=== PATIENT | male | born 1950 | race African-American/Black ===

== ENCOUNTER 2017-11-27 10:25 | Inpatient (IN) | payer MEDICARE, OTHER ==
[2017-11-27 11:03] LABS: ADD MAN DIFF? NO
[2017-11-27 11:05] LABS: ABNORMAL IP MESSAGE 1; BASOPHIL # 0.1 10^3/ul (0.0-0.1); BASOPHILS % 0.7 % (0.0-2.0); EOSINOPHILS # 0.2 10^3/ul (0.0-0.5); HEMATOCRIT 43.2 % (42.0-52.0); HEMOGLOBIN 14.2 g/dl (14.0-18.0); LYMPHOCYTES # 6.9 10^3/ul (0.8-2.9); LYMPHOCYTES % 44.1 % (15.0-51.0); MEAN CORPUSCULAR HEMOGLOBIN 31.8 pg (29.0-33.0); MEAN CORPUSCULAR HGB CONC 32.9 g/dl (32.0-37.0); MEAN CORPUSCULAR VOLUME 96.9 fl (82.0-101.0); MONOCYTE # 1.4 10^3/ul (0.3-0.9); MONOCYTES % 8.9 % (0.0-11.0); NEUTROPHIL # 6.7 10^3/ul (1.6-7.5); PLATELET COUNT 293 10^3/UL (140-415); POSITIVE DIFF @See below; RED BLOOD COUNT 4.46 10^6/ul (4.70-6.10); RED CELL DISTRIBUTION WIDTH 12.2 % (11.5-14.5)
[2017-11-27 11:05] LABS: WHITE BLOOD COUNT 15.6 10^3/ul (4.8-10.8)
[2017-11-27 11:21] LABS: ALANINE AMINOTRANSFERASE 15 IU/L (13-69); ALBUMIN 4.3 g/dl (3.3-4.9); ALKALINE PHOSPHATASE 89 IU/L (42-121); ANION GAP 17 (8-16); ASPARTATE AMINO TRANSFERASE 41 IU/L (15-46); BILIRUBIN,INDIRECT 0.3 mg/dl (0-1.1); BILIRUBIN,TOTAL 0.3 mg/dl (0.2-1.3); BLOOD UREA NITROGEN 17 mg/dl (7-20); CALCIUM 9.1 mg/dl (8.4-10.2); CARBON DIOXIDE 22 mmol/L (21-31); CHLORIDE 102 mmol/L (97-110); CREATININE 0.73 mg/dl (0.61-1.24); GLUCOSE 325 mg/dl (70-220); LIPASE 124 U/L (23-300); POTASSIUM 4.5 mmol/L (3.5-5.1); SODIUM 136 mmol/L (135-144); TOTAL PROTEIN 8.2 g/dl (6.1-8.1)
[2017-11-27 11:24] LABS: INR 0.91; PROTIME 12.3 Sec (11.9-14.9)
[2017-11-27 11:33] LABS: TROPONIN-I 0.018 ng/ml (0.000-0.120)
[2017-11-27] MEDS: PROPOFOL 100 ML IV (11:54)
[2017-11-27] MEDS: SOD CHLORIDE 0.9% 1,000 ML IV ×2 (11:55→18:35)
[2017-11-27] MEDS: niCARdipine-NS 0.1MG/ML DRIP 200 ML IV (11:57)
[2017-11-27 13:36] LABS: Allen Test ACCEPTAB; Arterial Blood Gas Oxygen Sat 94.7 mmHG (95.0-98.0); Arterial COHb 0.5 % (0.0-3.0); Arterial HCO3 19.1 mmol/L (22.0-26.0); Arterial MetHb 0.2 % (0.0-1.5); Arterial Total Hemglobin 14.5 g/dl (12.0-18.0); Arterial pCO2 40.5 mmhg (35-45); MODE VENT - AC; Site Right Radial
[2017-11-27] MEDS ORDERED: NACL 0.9% 3 ML SYG IV (14:00)
[2017-11-27] MEDS ORDERED: ONDANSETRON 4 MG INJ IV (14:00)
[2017-11-27] MEDS ORDERED: GLUCOSE GEL 15 GRAM TUBE PO ×2 (15:00)
[2017-11-27] MEDS ORDERED: DEXTROSE 50% 50 ML SYRINGE IV ×2 (15:00)
[2017-11-27] MEDS ORDERED: GLUCOSE GEL 15 GRAM TUBE BUCCAL (15:00)
[2017-11-27] MEDS ORDERED: morphine 2 MG INJ IV (15:00)
[2017-11-27] MEDS ORDERED: GLUCAGON 1 MG INJ IM (15:00)
[2017-11-27] MEDS ORDERED: LEVETIRACETAM 1000 MG (PMX) 100 ML IVPB (15:00)
[2017-11-27] MEDS ORDERED: LORAZEPAM 2 MG INJ IV (15:00)
[2017-11-27] MEDS ORDERED: INSULIN ASPART [NOVOLOG] 3 ML PEN SC (17:00)
[2017-11-27] MEDS: PANTOPRAZOLE 40 MG INJ IV (18:34)
[2017-11-27] MEDS: Insulin NOVOLOG SS MILD Algorithm (NPO/TPN/ENTERAL FEEDS) SC ×2 (18:35→22:11)
[2017-11-27 21:17] LABS: HEMATOCRIT 43.4 % (42.0-52.0); HEMOGLOBIN 14.1 g/dl (14.0-18.0)
[2017-11-27 23:23] LABS: AADO2 Arterial 621.7 mmHg (7.0-24.0); Allen Test ACCEPTAB; Arterial Base Excess -2.6 mmol/L (-3.0-3); Arterial Blood Gas Oxygen Sat 85.8 mmHG (95.0-98.0); Arterial COHb 0.7 % (0.0-3.0); Arterial Fraction of Oxyhgb 85.1 % (93.0-99.0); Arterial HCO3 22.5 mmol/L (22.0-26.0); Arterial MetHb 0.1 % (0.0-1.5); Arterial Total Hemglobin 14.9 g/dl (12.0-18.0); Arterial pCO2 40.1 mmhg (35-45); MODE VENT - AC; Site Right Radial
[2017-11-28] MEDS: niCARdipine-NS 0.1MG/ML DRIP 200 ML IV (00:31)
[2017-11-28] MEDS: ACCU-CHEK XX (02:15)
[2017-11-28] MEDS: Insulin NOVOLOG SS MILD Algorithm (NPO/TPN/ENTERAL FEEDS) SC ×6 (02:56→22:00)
[2017-11-28] MEDS: ACETAMINOPHEN 650MG/20.3ML CUP GTB ×2 (05:00→22:59)
[2017-11-28] MEDS: PANTOPRAZOLE 40 MG INJ IV (05:20)
[2017-11-28 05:23] LABS: ADD MAN DIFF? NO
[2017-11-28 05:27] LABS: ABNORMAL IP MESSAGE 1; BASOPHILS % 0.1 % (0.0-2.0); HEMATOCRIT 43.2 % (42.0-52.0); HEMOGLOBIN 14.1 g/dl (14.0-18.0); LYMPHOCYTES # 1.2 10^3/ul (0.8-2.9); LYMPHOCYTES % 4.5 % (15.0-51.0); MEAN CORPUSCULAR HEMOGLOBIN 31.9 pg (29.0-33.0); MEAN CORPUSCULAR HGB CONC 32.6 g/dl (32.0-37.0); MEAN CORPUSCULAR VOLUME 97.7 fl (82.0-101.0); MEAN PLATELET VOLUME 9.9 fl (7.4-10.4); MONOCYTE # 2.4 10^3/ul (0.3-0.9); MONOCYTES % 8.9 % (0.0-11.0); NEUTROPHILS % 85.2 % (39.0-77.0); PLATELET COUNT 224 10^3/UL (140-415); POSITIVE DIFF @See below; RED BLOOD COUNT 4.42 10^6/ul (4.70-6.10); RED CELL DISTRIBUTION WIDTH 12.7 % (11.5-14.5)
[2017-11-28 05:35] LABS: HEMOGLOBIN A1C 9.8 % (0-5.9)
[2017-11-28 05:55] LABS: ALANINE AMINOTRANSFERASE 31 IU/L (13-69); ALBUMIN 3.8 g/dl (3.3-4.9); ALBUMIN/GLOBULIN RATIO 1.08; ALKALINE PHOSPHATASE 87 IU/L (42-121); ANION GAP 15 (8-16); ASPARTATE AMINO TRANSFERASE 19 IU/L (15-46); BILIRUBIN,INDIRECT 0.5 mg/dl (0-1.1); BILIRUBIN,TOTAL 0.5 mg/dl (0.2-1.3); BLOOD UREA NITROGEN 12 mg/dl (7-20); CALCIUM 9.2 mg/dl (8.4-10.2); CARBON DIOXIDE 26 mmol/L (21-31); CHLORIDE 106 mmol/L (97-110); CREATININE 0.73 mg/dl (0.61-1.24); GLUCOSE 276 mg/dl (70-220); MAGNESIUM 1.7 mg/dl (1.7-2.5); POTASSIUM 4.6 mmol/L (3.5-5.1); SODIUM 142 mmol/L (135-144); TOTAL PROTEIN 7.3 g/dl (6.1-8.1)
[2017-11-28 06:23] LABS: THYROID STIMULATING HORMONE 0.082 MIU/L (0.465-4.680)
[2017-11-28] MEDS ORDERED: PIPER-TAZO 3.375 GM IV (PMX) 100 ML IVPB (12:00)
[2017-11-28] MEDS: SOD CHLORIDE 0.9% 1,000 ML IV (12:11)
[2017-11-28] MEDS: CEFEPIME 1GM/50 ML (PMX) 50 ML IVPB ×2 (12:11→20:05)
[2017-11-28] MEDS: INSULIN GLARGINE [LANTus] (100 UNITS/ML) SYG SC (12:19)
[2017-11-28] MEDS: niCARdipine 25 MG in SOD CHLORIDE 0.9% 250 ML IV ×2 (13:17→18:39)
[2017-11-28] MEDS: metroNIDAZOLE 500 MG/NS (PMX) 100 ML IVPB ×2 (13:19→21:40)
[2017-11-28] MEDS: PROPOFOL 100 ML IV ×2 (17:00→22:42)
[2017-11-29] MEDS: Insulin NOVOLOG SS MILD Algorithm (NPO/TPN/ENTERAL FEEDS) SC ×4 (01:00→11:57)
[2017-11-29] MEDS: ACCU-CHEK XX (02:47)
[2017-11-29] MEDS: PROPOFOL 100 ML IV (02:47)
[2017-11-29] MEDS: metroNIDAZOLE 500 MG/NS (PMX) 100 ML IVPB ×3 (05:43→22:00)
[2017-11-29] MEDS: PANTOPRAZOLE 40 MG INJ IV (05:43)
[2017-11-29 06:25] LABS: ADD MAN DIFF? NO
[2017-11-29 06:59] LABS: ABNORMAL IP MESSAGE 1; BASOPHIL # 0.1 10^3/ul (0.0-0.1); BASOPHILS % 0.3 % (0.0-2.0); HEMATOCRIT 42.2 % (42.0-52.0); HEMOGLOBIN 13.5 g/dl (14.0-18.0); LYMPHOCYTES # 1.6 10^3/ul (0.8-2.9); LYMPHOCYTES % 7.3 % (15.0-51.0); MEAN CORPUSCULAR HEMOGLOBIN 32.5 pg (29.0-33.0); MEAN CORPUSCULAR VOLUME 101.7 fl (82.0-101.0); MEAN PLATELET VOLUME 10.1 fl (7.4-10.4); MONOCYTE # 2.2 10^3/ul (0.3-0.9); MONOCYTES % 9.7 % (0.0-11.0); NEUTROPHIL # 18.3 10^3/ul (1.6-7.5); NEUTROPHILS % 81.7 % (39.0-77.0); PLATELET COUNT 176 10^3/UL (140-415); POSITIVE DIFF @See below; RED BLOOD COUNT 4.15 10^6/ul (4.70-6.10); RED CELL DISTRIBUTION WIDTH 12.9 % (11.5-14.5)
[2017-11-29 06:59] LABS: WHITE BLOOD COUNT 22.4 10^3/ul (4.8-10.8)
[2017-11-29] MEDS: SOD CHLORIDE 0.9% 1,000 ML IV ×2 (07:00→11:02)
[2017-11-29 07:32] LABS: ANION GAP 17 (8-16); BLOOD UREA NITROGEN 13 mg/dl (7-20); CALCIUM 9.2 mg/dl (8.4-10.2); CARBON DIOXIDE 24 mmol/L (21-31); CHLORIDE 109 mmol/L (97-110); CREATININE 0.74 mg/dl (0.61-1.24); GLUCOSE 247 mg/dl (70-220); MAGNESIUM 2.2 mg/dl (1.7-2.5); PHOSPHORUS 1.7 mg/dl (2.5-4.9); POTASSIUM 4.5 mmol/L (3.5-5.1); SODIUM 145 mmol/L (135-144)
[2017-11-29 08:45] LABS: AADO2 Arterial 338.2 mmHg (7.0-24.0); Allen Test ACCEPTAB; Arterial Base Excess -1.3 mmol/L (-3.0-3); Arterial Blood Gas Oxygen Sat 99.5 mmHG (95.0-98.0); Arterial COHb 0.6 % (0.0-3.0); Arterial Fraction of Oxyhgb 98.6 % (93.0-99.0); Arterial HCO3 24.1 mmol/L (22.0-26.0); Arterial MetHb 0.3 % (0.0-1.5); Arterial Total Hemglobin 14.4 g/dl (12.0-18.0); Arterial pCO2 42.8 mmhg (35-45); MODE VENT - AC; Site Left Radial
[2017-11-29] MEDS: INSULIN GLARGINE [LANTus] (100 UNITS/ML) SYG SC ×2 (08:59→11:57)
[2017-11-29] MEDS: CEFEPIME 1GM/50 ML (PMX) 50 ML IVPB ×2 (09:53→20:46)
[2017-11-29] MEDS: niCARdipine 25 MG in SOD CHLORIDE 0.9% 250 ML IV ×2 (09:53→15:41)
[2017-11-29] MEDS: INSULIN ASPART [NOVOLOG] 3 ML PEN SC ×2 (18:09→23:32)
[2017-11-29] MEDS ORDERED: niCARdipine-NS 0.1MG/ML DRIP 200 ML (20:43)
[2017-11-30] MEDS: niCARdipine 25 MG in SOD CHLORIDE 0.9% 250 ML IV ×5 (00:45→21:05)
[2017-11-30] MEDS: INSULIN ASPART [NOVOLOG] 3 ML PEN SC ×6 (04:59→21:23)
[2017-11-30 05:08] LABS: ADD MAN DIFF? NO
[2017-11-30 05:15] LABS: WHITE BLOOD COUNT 21.8 10^3/ul (4.8-10.8)
[2017-11-30 05:15] LABS: ABNORMAL IP MESSAGE 1; BASOPHIL # 0.1 10^3/ul (0.0-0.1); BASOPHILS % 0.4 % (0.0-2.0); HEMATOCRIT 39.8 % (42.0-52.0); HEMOGLOBIN 12.6 g/dl (14.0-18.0); LYMPHOCYTES % 9.3 % (15.0-51.0); MEAN CORPUSCULAR HEMOGLOBIN 31.7 pg (29.0-33.0); MEAN CORPUSCULAR HGB CONC 31.7 g/dl (32.0-37.0); MEAN PLATELET VOLUME 10.2 fl (7.4-10.4); MONOCYTE # 2.5 10^3/ul (0.3-0.9); MONOCYTES % 11.6 % (0.0-11.0); NEUTROPHIL # 16.9 10^3/ul (1.6-7.5); NEUTROPHILS % 77.6 % (39.0-77.0); PLATELET COUNT 169 10^3/UL (140-415); POSITIVE DIFF @See below; RED BLOOD COUNT 3.98 10^6/ul (4.70-6.10); RED CELL DISTRIBUTION WIDTH 13.2 % (11.5-14.5)
[2017-11-30] MEDS: PANTOPRAZOLE 40 MG INJ IV (05:18)
[2017-11-30] MEDS: metroNIDAZOLE 500 MG/NS (PMX) 100 ML IVPB ×3 (05:18→21:57)
[2017-11-30 05:53] LABS: ANION GAP 17 (8-16); BLOOD UREA NITROGEN 18 mg/dl (7-20); CALCIUM 9.2 mg/dl (8.4-10.2); CARBON DIOXIDE 27 mmol/L (21-31); CHLORIDE 108 mmol/L (97-110); CREATININE 0.75 mg/dl (0.61-1.24); GLUCOSE 277 mg/dl (70-220); MAGNESIUM 2.3 mg/dl (1.7-2.5); POTASSIUM 4.6 mmol/L (3.5-5.1); SODIUM 147 mmol/L (135-144)
[2017-11-30] MEDS: INSULIN GLARGINE [LANTus] (100 UNITS/ML) SYG SC ×2 (08:00→11:18)
[2017-11-30] MEDS: ACETAMINOPHEN 650MG/20.3ML CUP GTB ×2 (09:55→21:22)
[2017-11-30] MEDS: CEFEPIME 1GM/50 ML (PMX) 50 ML IVPB ×2 (09:55→20:57)
[2017-12-01] MEDS: INSULIN ASPART [NOVOLOG] 3 ML PEN SC ×6 (01:24→21:13)
[2017-12-01] MEDS: niCARdipine 25 MG in SOD CHLORIDE 0.9% 250 ML IV (03:08)
[2017-12-01 05:45] LABS: ADD MAN DIFF? NO
[2017-12-01 05:59] LABS: ABNORMAL IP MESSAGE 1; BASOPHIL # 0.1 10^3/ul (0.0-0.1); BASOPHILS % 0.4 % (0.0-2.0); EOSINOPHILS % 0.2 % (0.0-7.0); HEMATOCRIT 37.1 % (42.0-52.0); HEMOGLOBIN 11.7 g/dl (14.0-18.0); LYMPHOCYTES # 1.7 10^3/ul (0.8-2.9); LYMPHOCYTES % 12.2 % (15.0-51.0); MEAN CORPUSCULAR HEMOGLOBIN 31.4 pg (29.0-33.0); MEAN CORPUSCULAR HGB CONC 31.5 g/dl (32.0-37.0); MEAN CORPUSCULAR VOLUME 99.5 fl (82.0-101.0); MEAN PLATELET VOLUME 10.3 fl (7.4-10.4); MONOCYTE # 1.7 10^3/ul (0.3-0.9); MONOCYTES % 11.7 % (0.0-11.0); NEUTROPHIL # 10.6 10^3/ul (1.6-7.5); NEUTROPHILS % 74.1 % (39.0-77.0); PLATELET COUNT 151 10^3/UL (140-415); POSITIVE DIFF @See below; RED BLOOD COUNT 3.73 10^6/ul (4.70-6.10); RED CELL DISTRIBUTION WIDTH 13.2 % (11.5-14.5)
[2017-12-01 05:59] LABS: WHITE BLOOD COUNT 14.2 10^3/ul (4.8-10.8)
[2017-12-01] MEDS: metroNIDAZOLE 500 MG/NS (PMX) 100 ML IVPB ×3 (06:12→22:10)
[2017-12-01] MEDS: PANTOPRAZOLE 40 MG INJ IV (06:12)
[2017-12-01] MEDS: ACETAMINOPHEN 650MG/20.3ML CUP GTB (06:13)
[2017-12-01 06:19] LABS: ANION GAP 14 (8-16); BLOOD UREA NITROGEN 23 mg/dl (7-20); CALCIUM 9.3 mg/dl (8.4-10.2); CARBON DIOXIDE 27 mmol/L (21-31); CHLORIDE 111 mmol/L (97-110); CREATININE 0.66 mg/dl (0.61-1.24); GLUCOSE 287 mg/dl (70-220); MAGNESIUM 2.2 mg/dl (1.7-2.5); POTASSIUM 4.3 mmol/L (3.5-5.1); SODIUM 148 mmol/L (135-144)
[2017-12-01] MEDS: CEFEPIME 1GM/50 ML (PMX) 50 ML IVPB ×2 (09:14→21:06)
[2017-12-01] MEDS: INSULIN GLARGINE [LANTus] (100 UNITS/ML) SYG SC (09:51)
[2017-12-02] MEDS: INSULIN ASPART [NOVOLOG] 3 ML PEN SC ×6 (01:30→21:20)
[2017-12-02 05:16] LABS: ADD MAN DIFF? NO
[2017-12-02 05:24] LABS: ABNORMAL IP MESSAGE 1; BASOPHIL # 0.1 10^3/ul (0.0-0.1); BASOPHILS % 0.4 % (0.0-2.0); EOSINOPHILS # 0.1 10^3/ul (0.0-0.5); EOSINOPHILS % 0.9 % (0.0-7.0); HEMATOCRIT 36.7 % (42.0-52.0); HEMOGLOBIN 11.8 g/dl (14.0-18.0); LYMPHOCYTES # 2.4 10^3/ul (0.8-2.9); LYMPHOCYTES % 17.6 % (15.0-51.0); MEAN CORPUSCULAR HEMOGLOBIN 31.9 pg (29.0-33.0); MEAN CORPUSCULAR HGB CONC 32.2 g/dl (32.0-37.0); MEAN CORPUSCULAR VOLUME 99.2 fl (82.0-101.0); MEAN PLATELET VOLUME 10.3 fl (7.4-10.4); MONOCYTE # 1.6 10^3/ul (0.3-0.9); MONOCYTES % 11.8 % (0.0-11.0); NEUTROPHILS % 66.8 % (39.0-77.0); PLATELET COUNT 137 10^3/UL (140-415); POSITIVE DIFF @See below; RED CELL DISTRIBUTION WIDTH 13.2 % (11.5-14.5)
[2017-12-02 05:24] LABS: WHITE BLOOD COUNT 13.5 10^3/ul (4.8-10.8)
[2017-12-02] MEDS: metroNIDAZOLE 500 MG/NS (PMX) 100 ML IVPB ×3 (05:29→21:25)
[2017-12-02] MEDS: PANTOPRAZOLE 40 MG INJ IV (05:29)
[2017-12-02 06:10] LABS: ANION GAP 10 (8-16); BLOOD UREA NITROGEN 23 mg/dl (7-20); CARBON DIOXIDE 27 mmol/L (21-31); CHLORIDE 114 mmol/L (97-110); CREATININE 0.68 mg/dl (0.61-1.24); GLUCOSE 257 mg/dl (70-220); MAGNESIUM 2.2 mg/dl (1.7-2.5); PHOSPHORUS 2.6 mg/dl (2.5-4.9); POTASSIUM 3.9 mmol/L (3.5-5.1); SODIUM 147 mmol/L (135-144)
[2017-12-02 08:52] LABS: AADO2 Arterial 100.9 mmHg (7.0-24.0); Allen Test ACCEPTAB; Arterial Base Excess 2.5 mmol/L (-3.0-3); Arterial Blood Gas Oxygen Sat 95.5 mmHG (95.0-98.0); Arterial COHb 0.7 % (0.0-3.0); Arterial Fraction of Oxyhgb 94.5 % (93.0-99.0); Arterial HCO3 25.3 mmol/L (22.0-26.0); Arterial MetHb 0.3 % (0.0-1.5); Arterial Total Hemglobin 12.9 g/dl (12.0-18.0); Arterial pCO2 33.4 mmhg (35-45); MODE VENT - AC; Site Left Radial
[2017-12-02] MEDS: CEFEPIME 1GM/50 ML (PMX) 50 ML IVPB ×2 (08:52→21:19)
[2017-12-02] MEDS: INSULIN GLARGINE [LANTus] (100 UNITS/ML) SYG SC (08:53)
[2017-12-02] MEDS: morphine 2 MG INJ IV (13:33)
[2017-12-03] MEDS: morphine 2 MG INJ IV ×2 (00:17→02:39)
[2017-12-03] MEDS: INSULIN ASPART [NOVOLOG] 3 ML PEN SC ×6 (01:08→20:57)
[2017-12-03 04:49] LABS: ADD MAN DIFF? NO
[2017-12-03 04:50] LABS: WHITE BLOOD COUNT 16.1 10^3/ul (4.8-10.8)
[2017-12-03 04:50] LABS: ABNORMAL IP MESSAGE 1; BASOPHIL # 0.1 10^3/ul (0.0-0.1); BASOPHILS % 0.5 % (0.0-2.0); EOSINOPHILS # 0.2 10^3/ul (0.0-0.5); EOSINOPHILS % 1.4 % (0.0-7.0); HEMATOCRIT 36.6 % (42.0-52.0); HEMOGLOBIN 11.7 g/dl (14.0-18.0); LYMPHOCYTES % 18.9 % (15.0-51.0); MEAN CORPUSCULAR HEMOGLOBIN 31.8 pg (29.0-33.0); MEAN CORPUSCULAR VOLUME 99.5 fl (82.0-101.0); MEAN PLATELET VOLUME 10.9 fl (7.4-10.4); MONOCYTE # 1.6 10^3/ul (0.3-0.9); MONOCYTES % 10.2 % (0.0-11.0); NEUTROPHIL # 10.2 10^3/ul (1.6-7.5); NEUTROPHILS % 63.3 % (39.0-77.0); NUCLEATED RED BLOOD CELLS% 0.1 /100WBC (0.0-0.0); PLATELET COUNT 147 10^3/UL (140-415); POSITIVE DIFF @See below; RED BLOOD COUNT 3.68 10^6/ul (4.70-6.10); RED CELL DISTRIBUTION WIDTH 13.4 % (11.5-14.5)
[2017-12-03 05:15] LABS: ANION GAP 10 (8-16); BLOOD UREA NITROGEN 21 mg/dl (7-20); CALCIUM 9.1 mg/dl (8.4-10.2); CARBON DIOXIDE 27 mmol/L (21-31); CHLORIDE 113 mmol/L (97-110); CREATININE 0.73 mg/dl (0.61-1.24); GLUCOSE 228 mg/dl (70-220); MAGNESIUM 2.2 mg/dl (1.7-2.5); PHOSPHORUS 3.4 mg/dl (2.5-4.9); SODIUM 146 mmol/L (135-144)
[2017-12-03] MEDS: PANTOPRAZOLE 40 MG INJ IV (05:31)
[2017-12-03] MEDS: metroNIDAZOLE 500 MG/NS (PMX) 100 ML IVPB ×3 (05:31→21:59)
[2017-12-03] MEDS ORDERED: INSULIN GLARGINE [LANTus] (100 UNITS/ML) SYG SC (09:00)
[2017-12-03] MEDS: CEFEPIME 1GM/50 ML (PMX) 50 ML IVPB ×2 (09:52→20:55)
[2017-12-03] MEDS: INSULIN GLARGINE [LANTus] (100 UNITS/ML) SYG SC (12:32)
[2017-12-03] MEDS: ACETAMINOPHEN 650MG/20.3ML CUP GTB (21:54)
[2017-12-04] MEDS: INSULIN ASPART [NOVOLOG] 3 ML PEN SC ×3 (01:11→09:30)
[2017-12-04 05:00] LABS: ADD MAN DIFF? NO
[2017-12-04 05:02] LABS: ABNORMAL IP MESSAGE 1; BASOPHIL # 0.1 10^3/ul (0.0-0.1); BASOPHILS % 0.7 % (0.0-2.0); EOSINOPHILS # 0.3 10^3/ul (0.0-0.5); EOSINOPHILS % 1.9 % (0.0-7.0); HEMATOCRIT 37.5 % (42.0-52.0); HEMOGLOBIN 11.8 g/dl (14.0-18.0); LYMPHOCYTES # 2.7 10^3/ul (0.8-2.9); LYMPHOCYTES % 16.9 % (15.0-51.0); MEAN CORPUSCULAR HEMOGLOBIN 31.6 pg (29.0-33.0); MEAN CORPUSCULAR HGB CONC 31.5 g/dl (32.0-37.0); MEAN CORPUSCULAR VOLUME 100.3 fl (82.0-101.0); MEAN PLATELET VOLUME 10.8 fl (7.4-10.4); MONOCYTE # 1.7 10^3/ul (0.3-0.9); MONOCYTES % 10.7 % (0.0-11.0); NEUTROPHIL # 9.8 10^3/ul (1.6-7.5); NEUTROPHILS % 61.1 % (39.0-77.0); PLATELET COUNT 153 10^3/UL (140-415); POSITIVE DIFF @See below; RED BLOOD COUNT 3.74 10^6/ul (4.70-6.10); RED CELL DISTRIBUTION WIDTH 13.3 % (11.5-14.5)
[2017-12-04] MEDS: PANTOPRAZOLE 40 MG INJ IV (05:22)
[2017-12-04] MEDS: metroNIDAZOLE 500 MG/NS (PMX) 100 ML IVPB (05:22)
[2017-12-04 05:28] LABS: ANION GAP 11 (8-16); BLOOD UREA NITROGEN 21 mg/dl (7-20); CARBON DIOXIDE 28 mmol/L (21-31); CHLORIDE 110 mmol/L (97-110); CREATININE 0.69 mg/dl (0.61-1.24); GLUCOSE 250 mg/dl (70-220); MAGNESIUM 2.3 mg/dl (1.7-2.5); PHOSPHORUS 3.3 mg/dl (2.5-4.9); POTASSIUM 4.2 mmol/L (3.5-5.1); SODIUM 145 mmol/L (135-144)
[2017-12-04 05:31] LABS: ALBUMIN 2.9 g/dl (3.3-4.9); ANION GAP 11 (8-16); BLOOD UREA NITROGEN 20 mg/dl (7-20); CARBON DIOXIDE 28 mmol/L (21-31); CHLORIDE 110 mmol/L (97-110); CREATININE 0.65 mg/dl (0.61-1.24); GLUCOSE 247 mg/dl (70-220); PHOSPHORUS 3.3 mg/dl (2.5-4.9); POTASSIUM 4.3 mmol/L (3.5-5.1); SODIUM 145 mmol/L (135-144)
[2017-12-04 08:01] LABS: BAND NEUTROPHILS #M 0.6 10^3/ul (0.0-0.6); BAND NEUTROPHILS % (M) 4 % (0-4); EOSINOPHILS % (M) 2 % (0-7); ERYTHROBLAST% (NRBC) (M) 1 % (0-0); GIANT THROMBO% (M) 3 % (0-0); LYMPHOCYTES % (M) 13 % (15-51); METAMYELOCYTES #M 1.1 10^3/ul (0.0-0.0); METAMYELOCYTES %M 7 % (0-0); MONOCYTES % (M) 13 % (0-11); MYELOCYTES #M 0.6 10^3/ul (0.0-0.0); MYELOCYTES % (M) 4 % (0-0); PLATELET ESTIMATE DECREASED; POIKILOCYTOSIS 1+ (0-0); PROMYELOCYTES #M 0.1 10^3/ul (0-0); PROMYELOCYTES % (M) 1 % (0-0); SEG NEUT #M 9.1 10^3/ul (1.6-7.5); SEGMENTED NEUTROPHILS (M) % 56 % (39-77); SMUDGE%M 11 % (0-0)
[2017-12-04] MEDS: CEFEPIME 1GM/50 ML (PMX) 50 ML IVPB (09:19)
[2017-12-04] MEDS: INSULIN GLARGINE [LANTus] (100 UNITS/ML) SYG SC (09:27)
[2017-12-04] MEDS: LORAZEPAM 2 MG INJ IV (11:54)
[2017-12-04] MEDS: morphine (DRIP) 100 MG/100 ML 100 ML IV (12:31)
== END 2017-12-04 15:00 | disposition expired | DRG 23 ==
LOC: E/R 10:25 → ICU 12:27
PROC: 009630Z Drainage of Cerebral Ventricle with Drainage Device, Percutaneous Approach (ICD-10-PCS; principal; 2017-11-27)
PROC: 0BH17EZ Insertion of Endotracheal Airway into Trachea, Via Natural or Artificial Opening (ICD-10-PCS; 2017-11-27)
PROC: 5A1955Z Respiratory Ventilation, Greater than 96 Consecutive Hours (ICD-10-PCS; 2017-11-27)
DX: I61.5 Nontraumatic intracerebral hemorrhage, intraventricular (principal); A41.9 Sepsis, unspecified organism; G93.5 Compression of brain; G93.49 Other encephalopathy; J96.01 Acute respiratory failure with hypoxia; J96.02 Acute respiratory failure with hypercapnia; J69.0 Pneumonitis due to inhalation of food and vomit; G93.6 Cerebral edema; G91.1 Obstructive hydrocephalus; I16.1 Hypertensive emergency; I10 Essential (primary) hypertension; E11.9 Type 2 diabetes mellitus without complications; E66.9 Obesity, unspecified; Z68.39 Body mass index [BMI] 39.0-39.9, adult; K21.9 Gastro-esophageal reflux disease without esophagitis; E78.5 Hyperlipidemia, unspecified; I46.9 Cardiac arrest, cause unspecified; I60.8 Other nontraumatic subarachnoid hemorrhage; Z66 Do not resuscitate
CPT/HCPCS: 31500; 36415; 36600; 70450; 70496; 70498; 70551; 71045; 80048; 80053; 80069; 82803; 82962; 83036; 83690; 83735; 84100; 84443; 84484; 85014; 85018; 85025; 85610; 85730; 87040; 87081; 93005; 93306; 94002; 94003; 94770; 96374; 99291-25